=== PATIENT | male | born 1980 | race Caucasian/White ===

== ENCOUNTER 2018-09-18 14:40 | Observation (INO) | payer OTHER ==
[2018-09-18] MEDS ORDERED: Sodium Chloride 0.9% 1,000 ML IV ONE (15:29)
--- NOTE | 2018-09-18 15:33 | EDM.PDOC ---
ED HPI GENERAL MEDICAL PROBLEM - General Chief Complaint: General Stated Complaint: FACE SWELLED Time Seen by Provider: 09/18/18 15:23 - History of Present Illness INITIAL COMMENTS - FREE TEXT/NARRATIVE: HISTORY AND PHYSICAL: History of present illness: Patient's 38-year-old male presents with a concern of left-sided facial swelling 3 days this last 24 hours has been no trauma no known insect bite no known allergen exposure there's been no tongue or lip swelling shortness of breath or other concern. Patient denies postauricular pain patient denies tooth pain or trauma Review of systems: As per history of present illness and below otherwise all systems reviewed and negative. Past medical history: As per history of present illness and as reviewed below otherwise noncontributory. Surgical history: As per history of present illness and as reviewed below otherwise noncontributory. Social history: No reported history of drug or alcohol abuse. Family history: As per history of present illness and as reviewed below otherwise noncontributory. Physical exam: HEENT: Moderate swelling of his left face, normocephalic, pupils reactive, negative for conjunctival pallor or scleral icterus, mucous membranes moist, throat clear, neck supple, nontender, trachea midline. Lungs: Clear to auscultation, breath sounds equal bilaterally, chest nontender. Heart: S1S2, regular, negative for clicks, rubs, or JVD. Abdomen: Soft, nondistended, nontender. Negative for masses or hepatosplenomegaly. Negative for costovertebral tenderness. Pelvis: Stable nontender. Genitourinary: Deferred. Rectal: Deferred. Extremities: Atraumatic, negative for cords or calf pain. Neurovascular unremarkable. Neuro: Awake, alert, oriented. Patient does appear to have a component of seventh nerve palsy with sparing of his forehead. Cerebellum unremarkable. Motor and sensory unremarkable throughout. Exam nonfocal. 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 Left Face/Facial Pain Score (Numeric/FACES): 4 - Related Data Allergies Allergy/AdvReac Type Severity Reaction Status Date / Time No Known Allergies Allergy Verified 09/18/18 19:29 Home Meds: Home Meds Amoxicillin/Potassium Clav [Augmentin 875-125 Tablet] 1 each PO BID #10 tablet 09/19/18 [Rx] Past Medical History - Past Health History Medical/Surgical History: Denies Medical/Surgical History HEENT History: Reports: Impaired Vision - Infectious Disease History Infectious Disease History: Reports: Chicken Pox - Past Surgical History HEENT Surgical History: Reports: None Male Surgical History: Reports: Vasectomy Social & Family History - Family History Family Medical History: Noncontributory - Tobacco Use Smoking Status *Q: Current Every Day Smoker Years of Tobacco use: 20 Packs/Tins Daily: 1 - Caffeine Use Caffeine Use: Reports: Coffee, Energy Drinks, Soda - Recreational Drug Use Recreational Drug Use: No ED ROS GENERAL - Review of Systems Review Of Systems: ROS reveals no pertinent complaints other than HPI. ED EXAM, GENERAL - Physical Exam Exam: See Below (See dictation) Course - Vital Signs Last Recorded V/S: Last Vital Signs Temp 36.9 C 09/19/18 12:00 Pulse 95 09/19/18 12:00 Resp 18 09/19/18 12:00 BP 126/78 09/19/18 12:00 Pulse Ox 95 09/19/18 12:00 - Orders/Labs/Meds Labs: Laboratory Tests 09/18/18 09/18/18 09/18/18 Range/Units 15:30 15:45 15:45 WBC 14.18 H (4.0-11.0) K/uL RBC 5.89 (4.50-5.90) M/uL Hgb 17.6 H (13.0-17.0) g/dL Hct 51.6 H (38.0-50.0) % MCV 87.6 (80.0-98.0) fL MCH 29.9 (27.0-32.0) pg MCHC 34.1 (31.0-37.0) g/dL RDW Std Deviation 45.4 (28.0-62.0) fl RDW Coeff of Nica 14 (11.0-15.0) % Plt Count 202 (150-400) K/uL MPV 11.80 (7.40-12.00) fL Neut % (Auto) 70.8 (48.0-80.0) % Lymph % (Auto) 20.2 (16.0-40.0) % [place] % (Auto) 8.3 (0.0-15.0) % Eos % (Auto) 0.4 (0.0-7.0) % Baso % (Auto) 0.3 (0.0-1.5) % Neut # (Auto) 10.1 H (1.4-5.7) K/uL Lymph # (Auto) 2.9 H (0.6-2.4) K/uL [place] # (Auto) 1.2 H (0.0-0.8) K/uL Eos # (Auto) 0.1 (0.0-0.7) K/uL Baso # (Auto) 0.0 (0.0-0.1) K/uL Nucleated RBC % 0.0 /100WBC Nucleated RBCs # 0 K/uL INR 1.01 Lactate 1.0 (0.20-2.00) mmol/L Sodium (136-148) mmol/L Potassium (3.5-5.1) mmol/L Chloride (98-107) mmol/L Carbon Dioxide (21.0-32.0) mmol/L BUN (7.0-18.0) mg/dL Creatinine (0.8-1.3) mg/dL Est Cr Clr Drug Dosing mL/min Estimated GFR (MDRD) ml/min Glucose (74-106) mg/dL Calcium (8.5-10.1) mg/dL Total Bilirubin (0.2-1.0) mg/dL AST (15-37) IU/L ALT (14-63) IU/L Alkaline Phosphatase (46-116) U/L Total Protein (6.4-8.2) g/dL Albumin (3.4-5.0) g/dL Globulin (2.6-4.0) g/dL Albumin/Globulin Ratio (0.9-1.6) 09/18/18 Range/Units 15:45 WBC (4.0-11.0) K/uL RBC (4.50-5.90) M/uL Hgb (13.0-17.0) g/dL Hct (38.0-50.0) % MCV (80.0-98.0) fL MCH (27.0-32.0) pg MCHC (31.0-37.0) g/dL RDW Std Deviation (28.0-62.0) fl RDW Coeff of Nica (11.0-15.0) % Plt Count (150-400) K/uL MPV (7.40-12.00) fL Neut % (Auto) (48.0-80.0) % Lymph % (Auto) (16.0-40.0) % [place] % (Auto) (0.0-15.0) % Eos % (Auto) (0.0-7.0) % Baso % (Auto) (0.0-1.5) % Neut # (Auto) (1.4-5.7) K/uL Lymph # (Auto) (0.6-2.4) K/uL [place] # (Auto) (0.0-0.8) K/uL Eos # (Auto) (0.0-0.7) K/uL Baso # (Auto) (0.0-0.1) K/uL Nucleated RBC % /100WBC Nucleated RBCs # K/uL INR Lactate (0.20-2.00) mmol/L Sodium 134 L (136-148) mmol/L Potassium 3.8 (3.5-5.1) mmol/L Chloride 100 (98-107) mmol/L Carbon Dioxide 24.3 (21.0-32.0) mmol/L BUN 10 (7.0-18.0) mg/dL Creatinine 1.1 (0.8-1.3) mg/dL Est Cr Clr Drug Dosing 97.98 mL/min Estimated GFR (MDRD) > 60.0 ml/min Glucose 98 (74-106) mg/dL Calcium 8.9 (8.5-10.1) mg/dL Total Bilirubin 0.9 (0.2-1.0) mg/dL AST 24 (15-37) IU/L ALT 60 (14-63) IU/L Alkaline Phosphatase 89 (46-116) U/L Total Protein 7.7 (6.4-8.2) g/dL Albumin 3.7 (3.4-5.0) g/dL Globulin 4.0 (2.6-4.0) g/dL Albumin/Globulin Ratio 0.9 (0.9-1.6) Meds: Medications Discontinued Medications Generic Name Dose Route Start Last Admin Trade Name Arthurq PRN Reason Stop Dose Admin Acetaminophen 650 mg 09/18/18 18:15 Tylenol PO Q4H PRN Pain (Mild 1-3)/fever Enoxaparin Sodium 40 mg 09/18/18 20:00 09/18/18 20:19 Lovenox SUBCUT 40 mg Q24H ROSANNA Administration Sodium Chloride 1,000 mls @ 999 mls/hr 09/18/18 15:29 09/18/18 15:50 Normal Saline IV 09/18/18 16:29 999 mls/hr STAT ONE Administration Ceftriaxone Sodium/Dextrose 1 50 mls @ 100 mls/hr 09/18/18 17:28 09/18/18 17: 39 gm/ Premix IV 09/18/18 17:57 100 mls/hr ONETIME ONE Administration Vancomycin HCl 1 gm/ Sodium 250 mls @ 250 mls/hr 09/18/18 17:28 09/18/18 17: 41 Chloride IV 09/18/18 18:27 250 mls/hr ONETIME ONE Administration Sodium Chloride Confirm 09/18/18 17:35 09/18/18 17:41 Normal Saline Administered 09/18/18 17:36 Not Given Dose 250 mls @ as directed .ROUTE .STK-MED ONE Clindamycin Phosphate 300 mg/ 52 mls @ 100 mls/hr 09/18/18 18:00 09/18/18 18: 54 Sodium Chloride IV Not Given Q8H ROSANNA Sodium Chloride 1,000 mls @ 125 mls/hr 09/18/18 18:15 09/19/18 12:56 Normal Saline IV 125 mls/hr ASDIRECTED ROSANNA Administration Vancomycin HCl 500 mg/ Sodium 100 mls @ 100 mls/hr 09/18/18 20:00 09/18/18 20 :15 Chloride IV 09/18/18 20:59 100 mls/hr ONETIME ONE Administration Vancomycin HCl 1.5 gm/ Sodium 500 mls @ 333.333 mls/hr 09/19/18 08:00 08:58 Chloride IV 333.333 mls/hr Q12H ROSANNA Administration Clindamycin Phosphate Confirm 09/18/18 18:48 09/18/18 18:53 Cleocin In D5w Administered 09/18/18 18:49 Not Given Dose 50 mls @ as directed IV .STK-MED ONE Clindamycin Phosphate 300 mg/ 52 mls @ 100 mls/hr 09/18/18 19:00 09/18/18 19: 12 Dextrose/Water IV 100 mls/hr Q8H ROSANNA Administration Clindamycin Phosphate Confirm 09/19/18 02:39 09/19/18 03:00 Cleocin In D5w Administered 09/19/18 02:40 100 mls/hr Dose Administration 50 mls @ as directed IV .STK-MED ONE Clindamycin Phosphate 300 mg/ 50 mls @ 150 mls/hr 09/19/18 03:00 09/19/18 11: 14 Premix IV 150 mls/hr Q8H ROSANNA Administration Methylprednisolone Sodium Succinate 60 mg 09/18/18 19:00 09/19/18 11:14 Solu-Medrol IVPUSH 60 mg Q8H ROSANNA Administration Morphine Sulfate 2 mg 09/18/18 18:15 Morphine IVPUSH 09/19/18 18:19 Q2H PRN Pain (severe 7-10) Nicotine 14 mg 09/18/18 18:30 09/19/18 09:09 Habitrol TRDERM Not Given DAILY [facility] Oxycodone HCl 5 mg 09/18/18 18:15 Oxycodone PO Q4H PRN Pain (moderate 4-6) Temazepam 15 mg 09/18/18 18:15 Restoril PO BEDTIME PRN Sleep Vancomycin HCl Confirm 09/18/18 17:34 09/18/18 17:41 Vancomycin Administered 09/18/18 17:35 Not Given Dose 1 gm .ROUTE .STK-MED ONE Vancomycin HCl 1 dose 09/18/18 18:15 Pharmacy To Dose - Vancomycin .XX ASDIRECTED [facility] Departure - Departure Time of Disposition: 21:52 Disposition: Refer to Observation Condition: Good Clinical Impression: Cellulitis - Discharge Information
[2018-09-18 16:36] LABS: CHLORIDE,CL 100 mmol/L (98-107); SODIUM,NA 134 mmol/L (136-148)
--- NOTE | 2018-09-18 17:14 | CR ---
HISTORY: Facial swell. TECHNIQUE: Frontal view the chest. COMPARISON: None. FINDINGS: No airspace consolidation. No pleural effusion or pneumothorax. Pulmonary vasculature and cardiomediastinal silhouette are within normal limits. IMPRESSION: No cardiopulmonary abnormality. Dictated by Anatoliy Snowden MD @ Sep 18 2018 5:12PM Signed by Dr. Anatoliy Snowden @ Sep 18 2018 5:12PM
--- NOTE | 2018-09-18 17:22 | CT ---
HISTORY: Left-sided facial swelling. No injury. TECHNIQUE: CT facial bones without contrast. COMPARISON: None. FINDINGS: Infiltration of preseptal inferior periorbital soft tissues on the left extending into the left cheek anteriorly. Nose postseptal inflammatory change. Intraorbital contents are unremarkable. Stranding of subcutaneous fat extends into the left neck. No inflammatory change in the deep soft tissue planes. Enlarged left level 1 lymph node measures 23 mm long axis but retains its fatty hilum. Parotid and submandibular glands are unremarkable. Extensive dental disease with multiple caries and periapical lucencies. Moderate-severe mucosal thickening in the left maxillary sinus. Mild mucosal thickening in the right maxillary sinus. Mastoid air cells are clear. Middle ear cavities are clear. Temporomandibular joints are maintained. No facial bone fracture. Mild degenerative changes of the included cervical spine. IMPRESSION: 1. Infiltration of left face and neck superficial soft tissues of preseptal periorbital soft tissues. Appearance is nonspecific but may be due to cellulitis. No deep soft tissue inflammatory changes. 2. Enlarged left level 1 lymph node. 3. Extensive dental disease. 4. Paranasal sinus inflammatory changes. Please note that all CT scans at this facility use dose modulation, iterative reconstruction, and/or weight-based dosing when appropriate to reduce radiation dose to as low as reasonably achievable. Dictated by Anatoliy Snowden MD @ Sep 18 2018 5:10PM Signed by Dr. Anatoliy Snowden @ Sep 18 2018 5:21PM
--- NOTE | 2018-09-18 17:26 | CT ---
HISTORY: Left-sided facial swelling. TECHNIQUE: CT brain without contrast. COMPARISON: CT brain 05/09/2010. FINDINGS: No acute intracranial hemorrhage. No extra-axial collection. No mass effect or midline shift. Duke-white differentiation is maintained. Ventricular system is normal in caliber and morphology. Cisterns are patent. Calvarium is intact. Mucosal thickening in the maxillary sinuses, left greater than right. Stranding of left preseptal periorbital and facial subcutaneous fat more fully evaluated on facial bone CT. IMPRESSION: No acute intracranial abnormality. Please note that all CT scans at this facility use dose modulation, iterative reconstruction, and/or weight-based dosing when appropriate to reduce radiation dose to as low as reasonably achievable. Dictated by Anatoliy Snowden MD @ Sep 18 2018 5:24PM Signed by Dr. Anatoliy Snowden @ Sep 18 2018 5:24PM
[2018-09-18] MEDS ORDERED: cefTRIAXone 1 GM in Premix Bag 1 BAG IV ONE (17:28)
[2018-09-18] MEDS ORDERED: Vancomycin 1 GM SDV ONE (17:34)
[2018-09-18] MEDS ORDERED: Sodium Chloride 0.9% 250 ML ONE (17:35)
[2018-09-18] MEDS ORDERED: oxyCODONE 5 MG Tab PO PRN (18:15)
[2018-09-18] MEDS ORDERED: Acetaminophen 325 MG Tab PO PRN (18:15)
[2018-09-18] MEDS ORDERED: Temazepam 15 MG Cap PO PRN (18:15)
[2018-09-18] MEDS ORDERED: Morphine 2 MG/ML Syringe IVPUSH PRN (18:15)
--- NOTE | 2018-09-18 18:24 | PCM.HP ---
H&P History of Present Illness - General Date of Service: 09/18/18 Admit Problem/Dx: Admission Diagnosis/Problem Admission Diagnosis/Problem Cellulitis Source of Information: Patient History Limitations: Reports: No Limitations - History of Present Illness Initial Comments - Free Text/Narative: The patient is a 38-year-old gentleman who is presented to the emergency department with a complaint of swelling left side of his face and numbness to left side of his face. The patient reports that this started approximately 2 days ago. He has denied any fever or chills. He's had no nausea or vomiting. The patient uses tobacco. He does not normally seek medical care. The patient has no other complaints. Onset of Symptoms: Reports: Gradual Duration of Symptoms: Reports: Day(s): Location: Reports: Face Quality: Reports: Dull Severity: Mild Improves with: Reports: None Worsens with: Reports: None Context: Reports: Other (Dental disease) Associated Symptoms: Reports: No Other Symptoms Left Face/Facial Pain Score (Numeric/FACES): 4 - Related Data Allergies/Adverse Reactions: Allergies Allergy/AdvReac Type Severity Reaction Status Date / Time No Known Allergies Allergy Verified 09/18/18 14:47 Home Medications: Home Meds . [No Known Home Meds] 09/23/13 [History] Past Medical History - Past Health History Medical/Surgical History: Denies Medical/Surgical History HEENT History: Reports: Impaired Vision Cardiovascular History: Reports: None Respiratory History: Reports: None Gastrointestinal History: Reports: None Genitourinary History: Reports: None Musculoskeletal History: Reports: None Neurological History: Reports: Other (See Below) (Facial nerve palsy) Psychiatric History: Reports: None Endocrine/Metabolic History: Reports: None Hematologic History: Reports: None Immunologic History: Reports: None Oncologic (Cancer) History: Reports: None Dermatologic History: Reports: None - Infectious Disease History Infectious Disease History: Reports: Chicken Pox - Past Surgical History HEENT Surgical History: Reports: None Male Surgical History: Reports: Vasectomy Social & Family History - Family History Family Medical History: Noncontributory - Tobacco Use Smoking Status *Q: Current Every Day Smoker Years of Tobacco use: 20 Packs/Tins Daily: 1 - Caffeine Use Caffeine Use: Reports: Coffee, Energy Drinks, Soda - Alcohol Use Alcohol Use History: No - Recreational Drug Use Recreational Drug Use: No - Living Situation & Occupation Living situation: Reports: , Extended Care Facility Occupation: Employed H&P Review of Systems - Review of Systems: Review Of Systems: See Below General: Reports: No Symptoms HEENT: Reports: Other (Facial pain) Pulmonary: Reports: No Symptoms Cardiovascular: Reports: No Symptoms Gastrointestinal: Reports: No Symptoms Genitourinary: Reports: No Symptoms Musculoskeletal: Reports: No Symptoms Skin: Reports: No Symptoms Psychiatric: Reports: No Symptoms Neurological: Reports: No Symptoms Hematologic/Lymphatic: Reports: No Symptoms Immunologic: Reports: No Symptoms Exam - Exam Exam: See Below - Vital Signs Vital Signs: Last Vital Signs Temp 37.1 C 09/18/18 14:47 Pulse 94 09/18/18 17:30 Resp 13 09/18/18 17:30 BP 133/85 09/18/18 17:30 Pulse Ox 97 09/18/18 17:30 Weight: 113.398 kg - Exam Quality Assessment: No: Supplemental Oxygen General: Alert, Oriented, Cooperative, Mild Distress HEENT: Conjunctiva Clear, EACs Clear, EOMI, Hearing Intact, Nares Patent, Other (Swelling left-sided face), PERRLA. No: Mucosa Moist & [place] (Dental caries, poor oral hygiene) Neck: Supple, Trachea Midline Lungs: Clear to Auscultation, Normal Respiratory Effort Cardiovascular: Regular Rate, Regular Rhythm GI/Abdominal Exam: Normal Bowel Sounds, Soft, No Distention, Other (Obese) Back Exam: Normal Inspection, Full Range of Motion Extremities: Normal Inspection, No Pedal Edema Skin: Warm, Dry, Intact Neurological: Cranial Nerves Intact Neuro Extensive - Mental Status: Alert, Oriented x3 Neuro Extensive - Motor, Sensory, Reflexes: Normal Gait, Facial palsy (L) Psychiatric: Alert, Normal Affect, Normal Mood - Patient Data Lab Results Last 24 hrs: Laboratory Results - last 24 hr 09/18/18 09/18/18 09/18/18 Range/Units 15:45 15:45 15:45 WBC 14.18 H (4.0-11.0) K/uL RBC 5.89 (4.50-5.90) M/uL Hgb 17.6 H (13.0-17.0) g/dL Hct 51.6 H (38.0-50.0) % MCV 87.6 (80.0-98.0) fL MCH 29.9 (27.0-32.0) pg MCHC 34.1 (31.0-37.0) g/dL RDW Std Deviation 45.4 (28.0-62.0) fl RDW Coeff of Nica 14 (11.0-15.0) % Plt Count 202 (150-400) K/uL MPV 11.80 (7.40-12.00) fL Neut % (Auto) 70.8 (48.0-80.0) % Lymph % (Auto) 20.2 (16.0-40.0) % [place] % (Auto) 8.3 (0.0-15.0) % Eos % (Auto) 0.4 (0.0-7.0) % Baso % (Auto) 0.3 (0.0-1.5) % Neut # (Auto) 10.1 H (1.4-5.7) K/uL Lymph # (Auto) 2.9 H (0.6-2.4) K/uL [place] # (Auto) 1.2 H (0.0-0.8) K/uL Eos # (Auto) 0.1 (0.0-0.7) K/uL Baso # (Auto) 0.0 (0.0-0.1) K/uL Nucleated RBC % 0.0 /100WBC Nucleated RBCs # 0 K/uL INR 1.01 Sodium 134 L (136-148) mmol/L Potassium 3.8 (3.5-5.1) mmol/L Chloride 100 (98-107) mmol/L Carbon Dioxide 24.3 (21.0-32.0) mmol/L BUN 10 (7.0-18.0) mg/dL Creatinine 1.1 (0.8-1.3) mg/dL Est Cr Clr Drug Dosing 97.98 mL/min Estimated GFR (MDRD) > 60.0 ml/min Glucose 98 (74-106) mg/dL Calcium 8.9 (8.5-10.1) mg/dL Total Bilirubin 0.9 (0.2-1.0) mg/dL AST 24 (15-37) IU/L ALT 60 (14-63) IU/L Alkaline Phosphatase 89 (46-116) U/L Total Protein 7.7 (6.4-8.2) g/dL Albumin 3.7 (3.4-5.0) g/dL Globulin 4.0 (2.6-4.0) g/dL Albumin/Globulin Ratio 0.9 (0.9-1.6) Result Diagrams: 09/18/18 15:45 09/18/18 15:45 - Problem List (1) Facial cellulitis SNOMED Code(s): 613775727 ICD Code: L03.211 - CELLULITIS OF FACE Status: Acute Priority: High Current Visit: Yes (2) Leukocytosis, unspecified SNOMED Code(s): 380287711, 794595890 ICD Code: D72.829 - ELEVATED WHITE BLOOD CELL COUNT, UNSPECIFIED Status: Acute Priority: High Current Visit: Yes Qualifiers: Leukocytosis type: unspecified Qualified Code(s): D72.829 - Elevated white blood cell count, unspecified (3) Dental caries SNOMED Code(s): 73986613 ICD Code: K02.9 - DENTAL CARIES, UNSPECIFIED Status: Chronic Priority: High Current Visit: Yes (4) Tobacco abuse SNOMED Code(s): 997087228 ICD Code: Z72.0 - TOBACCO USE Status: Chronic Priority: Medium Current Visit: Yes (5) Facial nerve palsy, secondary SNOMED Code(s): 997013679 ICD Code: G51.0 - DIALLO'S PALSY Status: Chronic Priority: Medium Current Visit: Yes Problem List Initiated/Reviewed/Updated: Yes Orders Last 24hrs: Active Orders 24 hr Category Date Time Status Patient Status [ADT] Stat ADT 09/18/18 17:34 Active EKG Documentation Completion [RC] STAT Care 09/18/18 15:29 Active Oxygen Therapy [RC] PRN Care 09/18/18 18:15 Ordered Up ad Sugey [RC] ASDIRECTED Care 09/18/18 18:15 Ordered VTE/DVT Education [RC] PER UNIT ROUTINE Care 09/18/18 18:15 Ordered Vital Signs [RC] Q4H Care 09/18/18 18:15 Ordered Clear Liquid Diet [DIET] Diet 09/19/18 Breakfast Ordered CBC WITH AUTO DIFF [HEME] AM Lab 09/19/18 05:11 Ordered COMPREHENSIVE METABOLIC PN,CMP [CHEM] AM Lab 09/19/18 05:11 Ordered CULTURE BLOOD [BC] Stat Lab 09/18/18 17:30 Ordered CULTURE BLOOD [BC] Stat Lab 09/18/18 17:30 Ordered LACTATE WITH REFLEX [BG] Stat Lab 09/18/18 17:30 Ordered Acetaminophen [Tylenol] Med 09/18/18 18:15 Ordered 650 mg PO Q4H PRN Clindamycin Phosphate [Cleocin] 300 mg Med 09/18/18 18:15 Ordered Sodium Chloride 0.9% [Normal Saline] 50 ml IV Q8H Enoxaparin [Lovenox] Med 09/18/18 18:15 Ordered 30 mg SUBCUT Q24H Morphine Med 09/18/18 18:15 Ordered 2 mg IVPUSH Q2H PRN Nicotine [Habitrol] Med 09/18/18 18:30 Ordered 14 mg TRDERM DAILY Pharmacy to Dose - Vancomycin Med 09/18/18 18:15 Ordered 1 dose .XX ASDIRECTED Sodium Chloride 0.9% @ 125 MLS/HR (1000ml) Med 09/18/18 18:15 Ordered Sodium Chloride 0.9% [Normal Saline] 1,000 ml IV ASDIRECTED Temazepam [Restoril] Med 09/18/18 18:15 Ordered 15 mg PO BEDTIME PRN Vancomycin [Vancocin] 1 gm Med 09/18/18 17:28 Active Sodium Chloride 0.9% [Normal Saline] 250 ml IV ONETIME methylPREDNISolone Sod Succ [Solu-MEDROL] Med 09/18/18 18:15 Ordered 60 mg IV Q8H oxyCODONE Med 09/18/18 18:15 Ordered 5 mg PO Q4H PRN Blood Culture x2 Reflex Set [OM.PC] Stat Oth 09/18/18 17:30 Ordered Resuscitation Status Routine Resus Stat 09/18/18 18:15 Ordered Medication Orders Acetaminophen (Tylenol) 650 mg PO Q4H PRN PRN Reason: Pain (Mild 1-3)/fever Enoxaparin Sodium (Lovenox) 30 mg SUBCUT Q24H ROSANNA Vancomycin HCl 1 gm/ Sodium (Chloride) 250 mls @ 250 mls/hr IV ONETIME ONE Stop: 09/18/18 18:27 Last Admin: 09/18/18 17:41 Dose: 250 mls/hr Clindamycin Phosphate 300 mg/ (Sodium Chloride) 52 mls @ 100 mls/hr IV Q8H ROSANNA Sodium Chloride (Normal Saline) 1,000 mls @ 125 mls/hr IV ASDIRECTED [facility] Methylprednisolone Sodium Succinate (Solu-Medrol) 60 mg IV Q8H ROSANNA Morphine Sulfate (Morphine) 2 mg IVPUSH Q2H PRN PRN Reason: Pain (severe 7-10) Stop: 09/19/18 18:19 Nicotine (Habitrol) 14 mg TRDERM DAILY [facility] Oxycodone HCl (Oxycodone) 5 mg PO Q4H PRN PRN Reason: Pain (moderate 4-6) Temazepam (Restoril) 15 mg PO BEDTIME PRN PRN Reason: Sleep Vancomycin HCl (Pharmacy To Dose - Vancomycin) 1 dose .XX ASDIRECTED [facility] Assessment/Plan Comment:: The patient is a 38-year-old gentleman who was CT examination to the emergency department was noted to have swelling and infiltration consistent with preseptal cellulitis. The patient's globe and lids are not involved. This appears to be secondary to the patient's poor dental hygiene. The patient will be kept on vancomycin and clindamycin and of also added steroids Solu-Medrol 60 mg IV every 8 hours to help with the swelling and reduce pressure on his facial nerve. The patient will also have DVT prophylaxis with Lovenox 30 mg subcutaneous daily. Because the patient is a tobacco user I've ordered nicotine patch 14 mg daily. Because of the severity of the patient's facial cellulitis I placed the patient on clear liquid diet for now. Repeat laboratory studies have been ordered.
[2018-09-18] MEDS ORDERED: Clindamycin Phosphate in D5W 50 ML IV ONE (18:48)
[2018-09-18] MEDS: Nicotine 14 MG/24 Hr Patch TRDERM SCH (18:49)
[2018-09-18] MEDS: Sodium Chloride 0.9% 1,000 ML IV SCH (18:49)
[2018-09-18] MEDS: methylPREDNISolone Sodium Succinate 125 MG/2 ML SDV IVPUSH SCH (18:49)
[2018-09-18] MEDS ORDERED: Clindamycin Phosphate 300 MG in Dextrose 5% in Water 50 ML IV SCH ×2 (19:00)
[2018-09-18] MEDS ORDERED: Enoxaparin 40 MG/0.4 ML Syringe SUBCUT SCH (20:00)
[2018-09-19] MEDS ORDERED: Clindamycin Phosphate in D5W 50 ML IV ONE (02:39)
[2018-09-19] MEDS: Clindamycin Phosphate in D5W 300 MG in Premix Bag 1 BAG IV SCH ×4 (02:45→11:14)
[2018-09-19] MEDS: methylPREDNISolone Sodium Succinate 125 MG/2 ML SDV IVPUSH SCH ×2 (02:54→11:14)
[2018-09-19] MEDS: Sodium Chloride 0.9% 1,000 ML IV SCH ×2 (03:00→12:56)
[2018-09-19 06:22] LABS: CHLORIDE,CL 107 mmol/L (98-107); SODIUM,NA 140 mmol/L (136-148)
[2018-09-19] MEDS ORDERED: Vancomycin 1.5 GM in Sodium Chloride 0.9% 500 ML IV SCH (08:00)
[2018-09-19] MEDS: Nicotine 14 MG/24 Hr Patch TRDERM SCH (09:09)
--- NOTE | 2018-09-19 14:07 | PCM.DCSUM1 ---
Discharge Summary - Hospital Course Diagnosis: Stroke: No - Discharge Data Discharge Date: 09/19/18 Discharge Disposition: Home, Self-Care 01 Condition: Good - Discharge Diagnosis/Problem(s) (1) Facial cellulitis SNOMED Code(s): 837880336 ICD Code: L03.211 - CELLULITIS OF FACE Status: Acute Priority: High (2) Leukocytosis, unspecified SNOMED Code(s): 802810651, 229726538 ICD Code: D72.829 - ELEVATED WHITE BLOOD CELL COUNT, UNSPECIFIED Status: Acute Priority: High Qualifiers: Leukocytosis type: unspecified Qualified Code(s): D72.829 - Elevated white blood cell count, unspecified (3) Dental caries SNOMED Code(s): 06187800 ICD Code: K02.9 - DENTAL CARIES, UNSPECIFIED Status: Chronic Priority: High (4) Tobacco abuse SNOMED Code(s): 599479844 ICD Code: Z72.0 - TOBACCO USE Status: Chronic Priority: Medium (5) Facial nerve palsy, secondary SNOMED Code(s): 530306926 ICD Code: G51.0 - DIALLO'S PALSY Status: Chronic Priority: Medium - Patient Summary/Data Hospital Course: The patient is a 38-year-old gentleman who presented to the emergency department and was admitted yesterday secondary to facial cellulitis. The patient also had swelling which had resulted in a seventh nerve palsy on the left side of his face. The patient had a CT scan which did not show any evidence of abscess formation however, he did have advanced dental disease. It was thought the infection was from this particular source. The patient was started initially on vancomycin and clindamycin for the infection and he tolerated these well. The patient was also started on Solu-Medrol 60 mg IV every 8 hours to assist with the swelling and the facial nerve palsy. Initially was noted that the patient had a leukocytosis of 14,000 and by day of discharge this had resolved down to 10,000. The patient had also regained use of his facial nerve. The patient also initially had been placed on clear liquid diet. The patient had continued to improve through the short course of hospitalization and his diet was advanced as tolerated. The patient has been recommended to follow-up with dentist as soon as possible. I given the patient a prescription for Augmentin 875/125 mg take one by mouth twice a day. The patient has been recommended to continue with his diet as tolerated. He is also to have activity as tolerated. The patient has remained afebrile. He has been hemodynamically stable and he has been discharged from acute hospitalization with the recommendations listed above. - Patient Instructions Diet: Heart Healthy Diet Activity: As Tolerated Notify Provider of: Fever, Increased Pain, Swelling and Redness - Discharge Plan *PRESCRIPTION DRUG MONITORING PROGRAM REVIEWED*: No *COPY OF PRESCRIPTION DRUG MONITORING REPORT IN PATIENT KATHRIN: No Prescriptions/Med Rec: Amoxicillin/Potassium Clav [Augmentin 875-125 Tablet] 1 each PO BID #10 tablet Home Medications: Home Meds Amoxicillin/Potassium Clav [Augmentin 875-125 Tablet] 1 each PO BID #10 tablet 09/19/18 [Rx] Oxygen Therapy Mode: Room Air Patient Handouts: Amoxicillin; Clavulanic Acid tablets, Cellulitis, Adult, Diet and Dental Disease Referrals: Mg Bain MD [Resident] - (Call clinic tomorrow and obtain 1 week follow-up.) PCP,None [Primary Care Provider] - - Discharge Summary/Plan Comment DC Time >30 min.: Yes - General Info Date of Service: 09/19/18 Admission Dx/Problem (Free Text: Admission Diagnosis/Problem Admission Diagnosis/Problem Cellulitis, left side of face with facial nerve palsy Subjective Update: The patient says he is doing much better today. He is liking go home. Functional Status: Reports: Pain Controlled - Review of Systems General: Reports: No Symptoms HEENT: Reports: No Symptoms Pulmonary: Reports: No Symptoms Cardiovascular: Reports: No Symptoms Gastrointestinal: Reports: No Symptoms Genitourinary: Reports: No Symptoms Musculoskeletal: Reports: No Symptoms Skin: Reports: No Symptoms Neurological: Reports: No Symptoms Psychiatric: Reports: No Symptoms - Patient Data Vitals - Most Recent: Last Vital Signs Temp 36.9 C 09/19/18 12:00 Pulse 95 09/19/18 12:00 Resp 18 09/19/18 12:00 BP 126/78 09/19/18 12:00 Pulse Ox 95 09/19/18 12:00 Weight - Most Recent: 113.398 kg I&O - Last 24 hours: Intake & Output 09/18/18 09/19/18 09/19/18 22:59 06:59 14:59 Intake Total 150 2347 Output Total 2225 Balance 150 122 Lab Results - Last 24 hrs: Laboratory Results - last 24 hr 09/18/18 09/18/18 09/18/18 Range/Units 15:30 15:45 15:45 WBC 14.18 H (4.0-11.0) K/uL RBC 5.89 (4.50-5.90) M/uL Hgb 17.6 H (13.0-17.0) g/dL Hct 51.6 H (38.0-50.0) % MCV 87.6 (80.0-98.0) fL MCH 29.9 (27.0-32.0) pg MCHC 34.1 (31.0-37.0) g/dL RDW Std Deviation 45.4 (28.0-62.0) fl RDW Coeff of Nica 14 (11.0-15.0) % Plt Count 202 (150-400) K/uL MPV 11.80 (7.40-12.00) fL Neut % (Auto) 70.8 (48.0-80.0) % Lymph % (Auto) 20.2 (16.0-40.0) % [place] % (Auto) 8.3 (0.0-15.0) % Eos % (Auto) 0.4 (0.0-7.0) % Baso % (Auto) 0.3 (0.0-1.5) % Neut # (Auto) 10.1 H (1.4-5.7) K/uL Lymph # (Auto) 2.9 H (0.6-2.4) K/uL [place] # (Auto) 1.2 H (0.0-0.8) K/uL Eos # (Auto) 0.1 (0.0-0.7) K/uL Baso # (Auto) 0.0 (0.0-0.1) K/uL Nucleated RBC % 0.0 /100WBC Nucleated RBCs # 0 K/uL INR 1.01 Lactate 1.0 (0.20-2.00) mmol/L Sodium (136-148) mmol/L Potassium (3.5-5.1) mmol/L Chloride (98-107) mmol/L Carbon Dioxide (21.0-32.0) mmol/L BUN (7.0-18.0) mg/dL Creatinine (0.8-1.3) mg/dL Est Cr Clr Drug Dosing mL/min Estimated GFR (MDRD) ml/min Glucose (74-106) mg/dL Calcium (8.5-10.1) mg/dL Total Bilirubin (0.2-1.0) mg/dL AST (15-37) IU/L ALT (14-63) IU/L Alkaline Phosphatase (46-116) U/L Total Protein (6.4-8.2) g/dL Albumin (3.4-5.0) g/dL Globulin (2.6-4.0) g/dL Albumin/Globulin Ratio (0.9-1.6) 09/18/18 09/19/18 09/19/18 Range/Units 15:45 05:34 05:34 WBC 9.99 (4.0-11.0) K/uL RBC 5.65 (4.50-5.90) M/uL Hgb 16.7 (13.0-17.0) g/dL Hct 49.7 (38.0-50.0) % MCV 88.0 (80.0-98.0) fL MCH 29.6 (27.0-32.0) pg MCHC 33.6 (31.0-37.0) g/dL RDW Std Deviation 45.0 (28.0-62.0) fl RDW Coeff of Nica 14 (11.0-15.0) % Plt Count 205 (150-400) K/uL MPV 12.30 H (7.40-12.00) fL Neut % (Auto) 87.2 H (48.0-80.0) % Lymph % (Auto) 11.0 L (16.0-40.0) % [place] % (Auto) 1.7 (0.0-15.0) % Eos % (Auto) 0.0 (0.0-7.0) % Baso % (Auto) 0.1 (0.0-1.5) % Neut # (Auto) 8.7 H (1.4-5.7) K/uL Lymph # (Auto) 1.1 (0.6-2.4) K/uL [place] # (Auto) 0.2 (0.0-0.8) K/uL Eos # (Auto) 0.0 (0.0-0.7) K/uL Baso # (Auto) 0.0 (0.0-0.1) K/uL Nucleated RBC % 0.0 /100WBC Nucleated RBCs # 0 K/uL INR Lactate (0.20-2.00) mmol/L Sodium 134 L 140 (136-148) mmol/L Potassium 3.8 4.3 (3.5-5.1) mmol/L Chloride 100 107 (98-107) mmol/L Carbon Dioxide 24.3 23.6 (21.0-32.0) mmol/L BUN 10 11 (7.0-18.0) mg/dL Creatinine 1.1 0.9 (0.8-1.3) mg/dL Est Cr Clr Drug Dosing 97.98 119.75 mL/min Estimated GFR (MDRD) > 60.0 > 60.0 ml/min Glucose 98 149 H (74-106) mg/dL Calcium 8.9 8.5 (8.5-10.1) mg/dL Total Bilirubin 0.9 0.5 (0.2-1.0) mg/dL AST 24 19 (15-37) IU/L ALT 60 43 (14-63) IU/L Alkaline Phosphatase 89 80 (46-116) U/L Total Protein 7.7 6.8 (6.4-8.2) g/dL Albumin 3.7 3.1 L (3.4-5.0) g/dL Globulin 4.0 3.7 (2.6-4.0) g/dL Albumin/Globulin Ratio 0.9 0.8 L (0.9-1.6) Med Orders - Current: Current Medications Acetaminophen (Tylenol) 650 mg PO Q4H PRN PRN Reason: Pain (Mild 1-3)/fever Enoxaparin Sodium (Lovenox) 40 mg SUBCUT Q24H [facility] Last Admin: 09/18/18 20:19 Dose: 40 mg Sodium Chloride (Normal Saline) 1,000 mls @ 125 mls/hr IV ASDIRECTED [facility] Last Admin: 09/19/18 12:56 Dose: 125 mls/hr Vancomycin HCl 1.5 gm/ Sodium (Chloride) 500 mls @ 333.333 mls/hr IV Q12H [facility] Last Admin: 09/19/18 08:58 Dose: 333.333 mls/hr Clindamycin Phosphate 300 mg/ (Premix) 50 mls @ 150 mls/hr IV Q8H [facility] Last Admin: 09/19/18 11:14 Dose: 150 mls/hr Methylprednisolone Sodium Succinate (Solu-Medrol) 60 mg IVPUSH Q8H [facility] Last Admin: 09/19/18 11:14 Dose: 60 mg Morphine Sulfate (Morphine) 2 mg IVPUSH Q2H PRN PRN Reason: Pain (severe 7-10) Stop: 09/19/18 18:19 Nicotine (Habitrol) 14 mg TRDERM DAILY [facility] Last Admin: 09/19/18 09:09 Dose: Not Given Oxycodone HCl (Oxycodone) 5 mg PO Q4H PRN PRN Reason: Pain (moderate 4-6) Temazepam (Restoril) 15 mg PO BEDTIME PRN PRN Reason: Sleep Vancomycin HCl (Pharmacy To Dose - Vancomycin) 1 dose .XX ASDIRECTED [facility] Discontinued Medications Sodium Chloride (Normal Saline) 1,000 mls @ 999 mls/hr IV STAT ONE Stop: 09/18/18 16:29 Last Admin: 09/18/18 15:50 Dose: 999 mls/hr Ceftriaxone Sodium/Dextrose 1 (gm/ Premix) 50 mls @ 100 mls/hr IV ONETIME ONE Stop: 09/18/18 17:57 Last Admin: 09/18/18 17:39 Dose: 100 mls/hr Vancomycin HCl 1 gm/ Sodium (Chloride) 250 mls @ 250 mls/hr IV ONETIME ONE Stop: 09/18/18 18:27 Last Admin: 09/18/18 17:41 Dose: 250 mls/hr Sodium Chloride (Normal Saline) Confirm Administered Dose 250 mls @ as directed .ROUTE .STK-MED ONE Stop: 09/18/18 17:36 Last Admin: 09/18/18 17:41 Dose: Not Given Clindamycin Phosphate 300 mg/ (Sodium Chloride) 52 mls @ 100 mls/hr IV Q8H [facility] Last Admin: 09/18/18 18:54 Dose: Not Given Vancomycin HCl 500 mg/ Sodium (Chloride) 100 mls @ 100 mls/hr IV ONETIME ONE Stop: 09/18/18 20:59 Last Admin: 09/18/18 20:15 Dose: 100 mls/hr Clindamycin Phosphate (Cleocin In D5w) Confirm Administered Dose 50 mls @ as directed IV .STK-MED ONE Stop: 09/18/18 18:49 Last Admin: 09/18/18 18:53 Dose: Not Given Clindamycin Phosphate 300 mg/ (Dextrose/Water) 52 mls @ 100 mls/hr IV Q8H [facility] Last Admin: 09/18/18 19:12 Dose: 100 mls/hr Clindamycin Phosphate (Cleocin In D5w) Confirm Administered Dose 50 mls @ as directed IV .STK-MED ONE Stop: 09/19/18 02:40 Last Admin: 09/19/18 03:00 Dose: 100 mls/hr Vancomycin HCl (Vancomycin) Confirm Administered Dose 1 gm .ROUTE .STK-MED ONE Stop: 09/18/18 17:35 Last Admin: 09/18/18 17:41 Dose: Not Given - Exam Quality Assessment: Denies: Supplemental Oxygen General: Reports: Alert, Oriented, Cooperative, No Acute Distress HEENT: Reports: Pupils Equal, Pupils Reactive, EOMI, Other (Markedly decreased edema left side of face. No erythema. No tenderness.). Denies: Mucous Membr. Moist/[place] (Very poor dentition) Neck: Reports: Supple, Trachea Midline Lungs: Reports: Clear to Auscultation, Normal Respiratory Effort Cardiovascular: Reports: Regular Rate, Regular Rhythm GI/Abdominal Exam: Normal Bowel Sounds, Soft, No Distention Back Exam: Reports: Normal Inspection, Full Range of Motion Extremities: Normal Inspection, No Pedal Edema Skin: Reports: Warm, Dry, Intact Neurological: Reports: No New Focal Deficit Psy/Mental Status: Reports: Alert, Normal Affect
== END 2018-09-19 15:10 | disposition home or self-care (01) ==
LOC: MW.ED 14:40 → MW.MS 17:54
PROVIDERS: ADMIT Internal Medicine; ATTEND Internal Medicine
DX: L03.211 Cellulitis of face (principal); G51.0 Bell's palsy; D72.829 Elevated white blood cell count, unspecified; K02.9 Dental caries, unspecified; F17.210 Nicotine dependence, cigarettes, uncomplicated; H54.7 Unspecified visual loss
CPT/HCPCS: 36415; 70450; 70486; 71045; 80053; 83605; 85025; 85610; 93005; 96361; 96365; 96375; 99285; A4217; J0696; J1650; J2930; J3370; J3490; J7030; J7040; J7050; J7060; 96366; 96367; 96372; 96376; 99284; G0378

== ENCOUNTER 2023-05-16 13:58 | Observation (INO) | payer BC, OTHER ==
[2023-05-16 14:38] LABS: BASOPHILS ABSOLUTE AUTO 0.05 K/uL (0.00-0.20); BASOPHILS PERCENT AUTO 0.3 % (0.0-1.0); HEMATOCRIT 51.5 % (42.0-52.0); HEMOGLOBIN 17.4 g/dL (14.0-18.0); IMMATURE GRAN ABSOLUTE AUTO 0.07 K/uL (0.00-0.05); IMMATURE GRAN PERCENT AUTO 0.4 % (0.0-0.4); LYMPHOCYTES ABSOLUTE AUTO 1.48 K/uL (1.00-4.80); LYMPHOCYTES PERCENT AUTO 8.9 % (24.0-44.0); MEAN CORPUSCULAR HGB CONC 33.8 g/dL (32.0-36.0); MEAN PLATELET VOLUME 11.7 fL (9.4-12.4); MONOCYTES PERCENT AUTO 4.2 % (0.0-8.0); NEUTROPHILS ABSOLUTE AUTO 14.37 K/uL (1.80-7.70); NEUTROPHILS PERCENT AUTO 86.2 % (41.0-71.0); PLATELET COUNT,PLT 168 K/uL (150-400); RED BLOOD CELL COUNT 5.99 M/uL (4.52-5.90); WHITE BLOOD CELL COUNT,WBC 16.67 K/uL (3.9-11.3)
[2023-05-16] MEDS: Sodium Chloride 0.9% 1,000 ML IV ONE (14:42)
[2023-05-16] MEDS: Acetaminophen 500 MG Tab PO ONE (14:42)
[2023-05-16] MEDS: Sodium Chloride 0.9% 10 ML Syringe FLUSH PRN (14:42)
[2023-05-16] MEDS: Sodium Chloride 0.9% 2,000 ML IV ONE (14:42)
[2023-05-16] MEDS: Sodium Chloride 0.9% 2.5 ML Syringe FLUSH PRN (14:42)
[2023-05-16] MEDS: Ketorolac 30 MG/ML SDV IVPUSH ONE (14:43)
[2023-05-16 15:04] LABS: A/G RATIO 0.8 (0.9-1.6); ALBUMIN 3.2 g/dL (3.4-5.0); BILIRUBIN TOTAL 1.1 mg/dL (0.2-1.0); CALCIUM 8.8 mg/dL (8.5-10.1); CARBON DIOXIDE,CO2 19.6 mmol/L (21.0-32.0); CREATININE 1.3 mg/dL (0.8-1.3); EST CRCL DRUG DOSING (CG) 81.1 mL/min; POTASSIUM,K 3.5 mmol/L (3.5-5.1); PROTEIN TOTAL,TP 7.2 g/dL (6.4-8.2)
[2023-05-16 15:05] LABS: LACTIC ACID 1.9 mmol/L (0.4-2.0)
[2023-05-16] MEDS: VANCOmycin 2 GM/400 ML 2 GM in Premix Bag 1 BAG IV ONE (15:45)
[2023-05-16 15:50] LABS: CORONAVIRUS COVID-19 NAA NEGATIVE (NEGATIVE); INFLUENZA A NAA NEGATIVE (NEGATIVE); INFLUENZA B NAA NEGATIVE (NEGATIVE); RESPIRATORY SYNCYTIAL VIR NAA NEGATIVE (NEGATIVE)
[2023-05-16] MEDS ORDERED: Sodium Chloride 0.9% 20 ML SDV IV PRN (16:35)
[2023-05-16] MEDS ORDERED: Sodium Chloride 0.9% 10 ML Syringe FLUSH PRN (16:35)
[2023-05-16] MEDS ORDERED: Ondansetron 4 MG/2 ML SDV IVPUSH PRN (16:35)
[2023-05-16] MEDS ORDERED: Sodium Chloride 0.9% 2.5 ML Syringe FLUSH PRN (16:35)
[2023-05-16] MEDS ORDERED: Albuterol/Ipratropium 3.0-0.5 MG/3 ML Neb Soln NEB PRN (16:35)
[2023-05-16] MEDS ORDERED: Polyethylene Glycol 3350 Powder 17 GM Packet PO PRN (16:35)
[2023-05-16] MEDS ORDERED: Acetaminophen 325 MG Tab PO PRN (16:35)
[2023-05-16] MEDS ORDERED: Piperacillin/Tazobactam 4.5 GM in Sodium Chloride 0.9% 100 ML IV SCH (16:45)
[2023-05-16] MEDS ORDERED: Sodium Chloride 0.9% 1,000 ML IV SCH (16:45)
[2023-05-16] MEDS: Pantoprazole 40 MG in Sodium Chloride 0.9% 10 ML IVPUSH SCH (17:44)
[2023-05-16] MEDS: Piperacillin/Tazobactam 4.5 GM in Sodium Chloride 0.9% 100 ML IV ONE (17:45)
[2023-05-16] MEDS: Sodium Chloride 0.9% 1,000 ML IV SCH (17:51)
[2023-05-16] MEDS: Piperacillin/Tazobactam 4.5 GM in Sodium Chloride 0.9% 100 ML IV SCH (22:32)
[2023-05-17 06:34] LABS: BASOPHILS ABSOLUTE AUTO 0.05 K/uL (0.00-0.20); BASOPHILS PERCENT AUTO 0.3 % (0.0-1.0); EOSINOPHILS ABSOLUTE AUTO 0.02 K/uL (0.00-0.45); EOSINOPHILS PERCENT AUTO 0.1 % (0.0-6.0); HEMOGLOBIN 15.3 g/dL (14.0-18.0); IMMATURE GRAN ABSOLUTE AUTO 0.08 K/uL (0.00-0.05); IMMATURE GRAN PERCENT AUTO 0.5 % (0.0-0.4); LYMPHOCYTES ABSOLUTE AUTO 1.61 K/uL (1.00-4.80); LYMPHOCYTES PERCENT AUTO 10.9 % (24.0-44.0); MEAN CORPUSCULAR HEMOGLOBIN 29.2 pg (28.0-32.0); MEAN CORPUSCULAR VOLUME 85.9 fL (83.0-99.0); MEAN PLATELET VOLUME 11.4 fL (9.4-12.4); MONOCYTES ABSOLUTE AUTO 0.83 K/uL (0.00-0.80); MONOCYTES PERCENT AUTO 5.6 % (0.0-8.0); NEUTROPHILS ABSOLUTE AUTO 12.16 K/uL (1.80-7.70); NEUTROPHILS PERCENT AUTO 82.6 % (41.0-71.0); PLATELET COUNT,PLT 151 K/uL (150-400); RED BLOOD CELL COUNT 5.24 M/uL (4.52-5.90); WHITE BLOOD CELL COUNT,WBC 14.75 K/uL (3.9-11.3)
[2023-05-17 06:51] LABS: CALCIUM 8.1 mg/dL (8.5-10.1); CARBON DIOXIDE,CO2 21.1 mmol/L (21.0-32.0); CREATININE 1.1 mg/dL (0.8-1.3); EST CRCL DRUG DOSING (CG) 93.08 mL/min; POTASSIUM,K 3.5 mmol/L (3.5-5.1)
[2023-05-17 12:03] LABS: HEMOGLOBIN A1C 6.1 %
[2023-05-17] MEDS: VANCOmycin 1.5 GM/300 ML 1.5 GM in Premix Bag 1 BAG IV SCH (21:15)
[2023-05-18 06:10] LABS: BASOPHILS ABSOLUTE AUTO 0.04 K/uL (0.00-0.20); BASOPHILS PERCENT AUTO 0.4 % (0.0-1.0); EOSINOPHILS ABSOLUTE AUTO 0.15 K/uL (0.00-0.45); EOSINOPHILS PERCENT AUTO 1.6 % (0.0-6.0); HEMATOCRIT 43.5 % (42.0-52.0); HEMOGLOBIN 14.6 g/dL (14.0-18.0); IMMATURE GRAN ABSOLUTE AUTO 0.04 K/uL (0.00-0.05); IMMATURE GRAN PERCENT AUTO 0.4 % (0.0-0.4); LYMPHOCYTES ABSOLUTE AUTO 2.16 K/uL (1.00-4.80); LYMPHOCYTES PERCENT AUTO 23.3 % (24.0-44.0); MEAN CORPUSCULAR HGB CONC 33.6 g/dL (32.0-36.0); MEAN CORPUSCULAR VOLUME 86.5 fL (83.0-99.0); MEAN PLATELET VOLUME 12.5 fL (9.4-12.4); MONOCYTES ABSOLUTE AUTO 0.51 K/uL (0.00-0.80); MONOCYTES PERCENT AUTO 5.5 % (0.0-8.0); NEUTROPHILS ABSOLUTE AUTO 6.37 K/uL (1.80-7.70); NEUTROPHILS PERCENT AUTO 68.8 % (41.0-71.0); PLATELET COUNT,PLT 154 K/uL (150-400); RED BLOOD CELL COUNT 5.03 M/uL (4.52-5.90); WHITE BLOOD CELL COUNT,WBC 9.27 K/uL (3.9-11.3)
[2023-05-18 06:41] LABS: CARBON DIOXIDE,CO2 21.3 mmol/L (21.0-32.0); CREATININE 0.9 mg/dL (0.8-1.3); EST CRCL DRUG DOSING (CG) 113.77 mL/min; POTASSIUM,K 3.5 mmol/L (3.5-5.1)
[2023-05-18] MEDS: VANCOmycin 1.75 GM/350 ML 1.75 GM in Premix Bag 1 BAG IV SCH (08:56)
[2023-05-18] MEDS ORDERED: Pantoprazole 40 MG Tab.CR PO SCH (21:00)
== END 2023-05-18 13:45 | disposition home or self-care (01) ==
LOC: MW.ED 13:58 → MW.MS 17:19
PROVIDERS: ADMIT Family Medicine; ATTEND Family Medicine
DX: L03.115 Cellulitis of right lower limb (principal); D72.829 Elevated white blood cell count, unspecified; E66.9 Obesity, unspecified; Z68.34 Body mass index [BMI] 34.0-34.9, adult; Z79.899 Other long term (current) drug therapy
CPT/HCPCS: 0241U; 36415; 71045; 80048; 80053; 80202; 83036; 83605; 83690; 84484; 85025; 87040; 93005; 96361; 96365; 96366; 96367; 96368; 96375; 96376; 99284; A9270; C9113; G0378; J1885; J2543; J3370; J3490; J7030; J7050; 93010